=== PATIENT | female | born 1945 | race Caucasian/White ===

== ENCOUNTER 2024-04-17 14:38 | Inpatient (IN) | payer MEDICARE, OTHER ==
[~2024-04-17] VITALS: Ht 165.1 cm; Wt 72.6 kg
--- NOTE | 2024-04-17 15:45 | ED.PDOC ---
General HPI Comments A 78 YEAR OLD FEMALE PRESENTS TO THE ED ACCOMPANIED BY FRIEND PRESENTS TO THE ED WITH CHIEF COMPLAINT OF LOWER BACK PAIN. PATIENT REPORTS THAT SHE HAD STARTED TO EXPERIENCE BILATERAL LOWER BACK PAIN SINCE EARLIER TODAY ALONG WITH ASSOCIATED SYMPTOMS OF DYSURIA. PATIENT'S FRIEND RELAYS THE PATIENT HAS NOT BEEN BEHAVING NORMAL SINCE EARLIER TODAY SHE IS NOT ANSWERING QUESTIONS VERY OFTEN. PATIENT'S FRIEND STATES THAT THE PATIENT STARTED TO EXPERIENCE HER LOWER BACK PAIN AFTER ALMOST FALLING AND BENDING HER BACK FORWARD. PT HAS HX OF HYPOTHYROIDISM AND SHE DID NOT TAKE HER MEDICATION FOR MONTHS. PATIENT AND PATIENT'S FRIEND DENIES SADDLE ANESTHESIA, URINARY INCONTINENCE, BOWEL INCONTINENCE, VISION CHANGES, SLURRED SPEECH, ONE-SIDED WEAKNESS, FACIAL DROOP, ABDOMINAL PAIN, CHEST PAIN, FALL, INJURY, DIZZINESS, SOB, FEVER, CHILLS, HEMATURIA, NAUSEA, THORACIC BACK PAIN, VOMITING NO OTHER SYMPTOMS REPORTED AT THIS TIME OF CARE. Chief Complaint: Back Pain Time Seen by MD: 15:41 Primary Care Provider: unknown Reviewed notes: Nurses Notes, Medications Allergies: Coded Allergies: NO KNOWN ALLERGIES (Unverified , 04/17/24) Information Source: Patient, Friend, Emergency Med Personnel Mode of Arrival: EMS Severity: Moderate Timing: Hours Duration: Since onset Prehospital treatment: None Onset: Spontaneous Symptoms: Dysuria History of: None Location: Other (LOW BACK ) Modifying factors: None associated signs and symptoms: Back Pain, Dysuria, Other (WEAKNESS ) Past Medical History PAST MEDICAL HISTORY: Thyroid Surgical History: Denies all surgeries BREEDING MANAGER History: No Pertinent BREEDING MANAGER History Family History Family History: Reviewed,noncontributory to illness Social History Smoker: Non-Smoker Alcohol: Denies ETOH Use Drugs: Denies Drug Use Lives In: Assisted Care Constitutional: reports: fatigue, weakness; denies: chills, diaphoresis, fever, malaise, sweats EENTM: denies: blurred vision, double vision, ear bleeding, ear discharge, ear drainage, ear pain, ear ringing, eye pain, eye redness, hearing loss, mouth pain, mouth swelling, nasal discharge, nose bleeding, nose congestion, nose pain, photophobia, tearing, throat pain, throat swelling, voice changes, others Respiratory: denies: cough, hemoptysis, orthopnea, SOB at rest, shortness of breath, SOB with excertion, stridor, wheezing, others Cardiovascular: denies: chest pain, dizzy spells, diaphoresis, Dyspnea on exertion, edema, irregular heart beat, left arm pain, lightheadedness, palpitations, PND, syncope, others Gastrointestinal: denies: abdomen distended, abdominal pain, blood streaked bowels, constipated, diarrhea, dysphagia, difficulty swallowing, hematemesis, melena, nausea, poor appetite, poor fluid intake, rectal bleeding, rectal pain, vomiting, others Genitourinary: reports: dysuria; denies: abnormal vagina bleeding, burning, dyspareunia, frequency, hematuria, incontinence, pain, , vagina discharge, urgency, others Neurological: denies: dizziness, fainting, headache, left sided numbness, left sided weakness, numbness, paresthesia, pre-existing deficit, right sided numbness, right sided weakness, seizure, speech problems, tingling, tremors, weakness, others Musculoskeletal: reports: back pain, muscle pain; denies: gout, joint pain, joint swelling, muscle stiffness, neck pain, others Integumetry: denies: bruises, change in color, change in hair/nails, dryness, laceration, lesions, lumps, rash, wounds, others Allergic/Immunocompromised: denies: Difficulty Healing, Frequent Infections, Hives, Itching, others Hematologic/Lymphatic: denies: anemia, blood clots, easy bleeding, easy bruising, swollen glands, others Endocrine: denies: excessive hunger, excessive sweating, excessive thirst, excessive urination, flushing, intolerance to cold, intolerance to heat, unexplained weight gain, unexplained weight loss, others Psychiatric: denies: anxiety, bipolar disorder, depression, hopeless, panic disorder, schizophrenia, sleepless, suicidal, others All Other Systems: Reviewed and Negative Physical Exam General Appearance: Mild Distress, Normal, Other (PALE ) HEENT: Normal ENT Inspection, PERRL/EOMI Neck: Full Range of Motion, Non-Tender, Normal, Normal Inspection Respiratory: Chest Non-Tender, Lungs Clear, No Accessory Muscle Use, No Respiratory Distress, Normal Breath Sounds Cardiovascular: No Edema, No JVD, No Murmur, No Gallop, Normal Peripheral Pulses, Regular Rate/Rhythm Breast Exam: Deferred Gastrointestinal: No Organomegaly, Non Tender, No Pulsatile Mass, Normal Bowel Sounds, Soft Genitalia: Deferred Pelvic: Deferred Rectal: Deferred Extremities: No calf tenderness, Normal capillary refill, Normal inspection, Normal range of motion, Non-tender, No pedal edema Musculoskeletal : Location: Bilateral Extremity Location: Back Apperance: Tenderness (LOWER BACK, NO BONY TENDERNESS, SWELLING AND DEFORMITY. TENDERNESS PALPATED OVER L2 THROUGH L5 BILATERAL PARASPINAL MUSCLES. STRAIGHT LEG NEG BILATERAL. POSITIVE PEDAL PULSES) Neurologic: Alert, application integration engineer II-XII nml as Tested, No Motor Deficits, Normal Affect, Normal Mood, No Sensory Deficits Cerebellar Function: Normal Reflexes: Normal Skin: Dry, Normal Color, Warm Peripheral Pulses: 2+ carotid (R), 2+ carotid (L), 2+ femoral (R), 2+ femoral (L), 2+ dorsalis pedis (R), 2+ dorsalis pedis (L) Lymphatic: No Adenopathy Was a procedure done? Was a procedure done?: No Sedation Sedation?: Yes Informed consent obtained: No Sedation start time: 00:00 (Emergent condition) Sedation end time: 00:00 (Ongoing. Emergent condition.) Sedation total time: 1 HOUR Sedation provider statement: This is not my patient. This care of this patient was never signed out to me. I was called for the 1st code of this patient while in the ED who is pulseless/bradycardic and unresponsive and CPR has already been initiated. Prior to any procedure performed, I evaluated the patient's pupils. Nonreactive to light. Pupils are fixed and dilated. Procedures performed 1. GlideScope assisted endotracheal intubation. Successful intubation performed from 1st attempt. Complications none. Please see nursing notes for ET tube size and placement. Vocal cords were visualized. Good auscultation bilaterally. Post intubation x-rays obtained. Patient was preoxygenated by bag-valve masking. Etomidate was used and succinylcholine as well. Patient received an OG tube and a Martinez catheter. 2. Central line placement. First attempt at the right femoral region under ultrasound guidance was not successful due to patient's vascular anatomy. Multiple attempts were made. Patient developed a small controlled superficial hematoma at the site of the insertion of the needle. The site was aborted and I changed it to the left femoral region. Appreciated better anatomy. Left femoral central line placement under ultrasound guidance was successful from 1st attempt. However the three ports were noted to flush very easily but harder to aspirate blood from. Two of the three ports were successful in aspirating blood. The brown port was not aspirating blood. The nurse was notified to be aware. Patient later in the ED course coded again and I was called to assist with the code. Please see the code sheet for medications given. First resuscitation efforts in the 1st code patient obtained ROSC. She was placed on a dopamine drip. Pads were in place as well. Second code: Please refer to the code sheets. Time of 2338 on April 17, 2024 Dr. Robby Zapata. Central Line Recorder of insertion practice: Warehouse Receiving Supervisor Indication: Hypotension, Other (Cardiac arrest) Room prepared for procedure: Yes Warehouse Receiving Supervisor performed hand hygien: Yes Maximal sterile barrier precau: Sterile gown, Sterlie gloves, Large sterlie drape Skin Preparation: Chlorhexidine gluconate Insertion site: Right, Left, Femoral Number of lumens: 3 Informed consent obtained: No Risks/benefits/alt described: No UTO Consent Emergent condition no family available at bedside. Differential Diagnosis Kidney stone (Female): Musculoskeletal pain, Strain, Urolithiasis, Other (DDD OF LOW BACK ) Urinary Problem (Female): UTI, Other (WEAKNESS ) X-Ray, Labs, Meds, VS Vital Signs Date Time Temp Pulse Resp B/P (MAP) Pulse Ox O2 Delivery O2 Flow Rate FiO2 04/17/24 21:49 116 04/17/24 21:45 92.7 119 9 145/105 (118) 92.7 04/17/24 21:42 16 65 04/17/24 21:30 92.7 36 15 116/26 (56) 92.7 04/17/24 21:30 116/29 04/17/24 21:27 35 04/17/24 21:18 15 65 04/17/24 21:18 92.7 56 17 146/125 (132) 92.7 04/17/24 21:08 92.7 77 10 126/97 (107) 92.7 04/17/24 20:30 93.0 9 136/101 (113) 93.0 04/17/24 20:15 93.2 60 20 115/84 (94) 100 93.2 04/17/24 19:55 97.2 38 118/76 (90) 97.2 04/17/24 19:45 13 45/24 (31) 04/17/24 18:47 73 15 53/31 (38) 92 04/17/24 15:53 98.1 80 15 98/61 (73) 100 98.1 04/17/24 15:53 80 15 100 Room Air 04/17/24 15:03 98.1 60 16 98/61 (73) 10 04/17/24 14:45 59/33 (42) Lab Test 04/17/24 21:11 04/17/24 20:30 04/17/24 19:05 04/17/24 19:03 Range/Units POC Glucose 275 H 325 H 140 H 70-106 mg/dl Blood Gas Specimen Type Arterial Blood Gas Sample Site Right radial Blood Gas Patient Temperature 37.0 Arterial Blood Date Drawn [id number] Arterial Blood pH 7.117 *L 7.350-7.450 Arterial Blood Partial Pressure CO2 24.2 L 32.0-45.0 mmHg Arterial Blood Partial Pressure O2 148.3 H 83.0-108.0 mmHg Arterial Blood HCO3 7.6 L 21.0-28.0 mmol/L Arterial Blood Oxygen Saturation 97.9 94.0-98.0 % Arterial Blood Base Excess -20.1 L -2.0-3.0 mmol/L Arterial Blood Oxyhemoglobin 96.6 94.0-98.0 % Arterial Blood Carboxyhemoglobin 0.9 0.5-1.5 % Arterial Blood Methemoglobin 0.4 0.0-1.5 % Cristofer Test N/a Blood Gas Total Hemoglobin 9.70 L 12.0-16.0 g/dL Blood Gas Liter Flow 8.00 Blood Gas Modality Nasal cannula FiO2 % 52.0 Blood Gas Critical Value Read Back yes Blood Gas Notified Whom Dr. zapata, yossi lao Blood Gas Notified Time [id number] Blood Gas Notified By Test 04/17/24 17:51 04/17/24 15:50 Range/Units White Blood Count 14.4 H 4.4-10.8 10^3/uL Red Blood Count 3.41 L 4.0-5.20 10^6/uL Hemoglobin 11.8 L 12.2-16.2 g/dL Hematocrit 35.0 L 36.0-46.0 % Mean Corpuscular Volume 102.5 H 80.0-100.0 fL Mean Corpuscular Hemoglobin 34.5 H 28.0-32.0 pg Mean Corpuscular Hemoglobin Concent 33.6 32.0-36.0 g/dL Red Cell Distribution Width 16.1 H 11.8-14.3 % Platelet Count 130 L 140-450 10^3/uL Mean Platelet Volume 8.3 6.9-10.8 fL Neutrophils (%) (Auto) 88.3 H 37.0-80.0 % Lymphocytes (%) (Auto) 7.7 L 10.0-50.0 % Monocytes (%) (Auto) 3.6 0.0-12.0 % Eosinophils (%) (Auto) 0.1 0.0-7.0 % Basophils (%) (Auto) 0.3 0.0-2.0 % Neutrophils # (Auto) 12.7 H 1.6-8.6 10 ^3/uL Lymphocytes # (Auto) 1.1 0.4-5.4 10 ^3/uL Monocytes # (Auto) 0.5 0-1.3 10 ^3/uL Eosinophils # (Auto) 0 0-0.8 10 ^3/uL Basophils # (Auto) 0 0-0.2 10 ^3/uL Nucleated Red Blood Cells 0.0 % Prothrombin Time 12.1 H 9.3-11.8 sec Prothrombin Time INR 1.16 H 0.9-1.15 Sodium Level 137 136-145 mmol/L Potassium Level 3.4 L 3.5-5.1 mmol/L Chloride Level 106 98-107 mmol/L Carbon Dioxide Level 18 L 20-31 mmol/L Anion Gap 13 5-15 Blood Urea Nitrogen 18 9-23 mg/dL Creatinine 1.61 H 0.550-1.02 mg/dL Glomerular Filtration Rate Calc 33 >90 mL/min BUN/Creatinine Ratio 11.2 10.0-20.0 Serum Glucose 261 H 74-106 mg/dL Calcium Level 9.1 8.7-10.4 mg/dL Troponin I High Sensitivity 6 </=34 ng/L Thyroid Stimulating Hormone (TSH) 142.07 H 0.55-4.78 uIU/mL Urine Color Yellow Yellow Urine Clarity Turbid H Clear Urine pH 6.0 5.0-9.0 Urine Specific [place] 1.026 1.001-1.035 Urine Protein 2+ H Negative Urine Ketones Trace Negative Urine Blood Negative Negative /uL Urine Nitrite Negative Negative Urine Bilirubin Negative Negative Urine Urobilinogen 2 H Negative mg/dL Urine Leukocyte Esterase Negative Negative /uL Urine RBC 3 0 - 4 /hpf Urine Microscopic WBC 3 0-5 /HPF Urine Squamous Epithelial Cells Few <5 /hpf Urine Bacteria Few H None Seen /hpf Urine Mucus Few None Seen Urine Glucose Normal Normal mg/dL Urine Opiates Screen Neg NEGATIVE Urine Fentanyl Screen Neg NEGATIVE Urine Barbiturates Screen Neg NEGATIVE Urine Phencyclidine Screen Neg NEGATIVE Urine Amphetamines Screen Neg NEGATIVE Urine Benzodiazepines Screen Neg NEGATIVE Urine Cocaine Screen Neg NEGATIVE Urine Cannabinoids Screen Neg NEGATIVE Current Medications Medications (Trade) Dose Ordered Sig/Ruperto Route Start Time Stop Time Status Last Admin Acetaminophen/ Hydrocodone Bitart ([place] 5/325MG Tab) 1 tab ONCE ONCE PO 04/17/24 16:45 04/17/24 16:56 DC 04/17/24 16:43 Sodium Chloride 1,000 ml @ 1,000 mls/hr Q1H ONCE IV 04/17/24 17:00 04/17/24 17:59 DC 04/17/24 17:20 Sodium Chloride 1,000 ml @ 1,000 mls/hr Q1H ONCE IV 04/17/24 19:00 04/17/24 19:59 DC 04/17/24 18:56 Atropine Sulfate (Atropine Sulfate) 1 mg ONCE ONCE IV 04/17/24 20:15 04/17/24 21:34 DC 04/17/24 20:15 Dopamine HCl/ Dextrose 250 ml @ 13.613 mls/ hr [id number] IV 04/17/24 21:30 04/17/24 23:51 DC 04/17/24 21:30 Sodium Chloride 1,000 ml @ 60 mls/hr [id number] IV 04/17/24 21:15 04/17/24 23:51 DC 04/17/24 21:15 Etomidate 40 mg ONCE ONCE IV 04/17/24 20:15 04/17/24 22:26 DC 04/17/24 20:15 L-SPINE XR: FINDINGS: The lumbar vertebral alignment is normal. Facet arthropathy at L5-S1 causing moderate neural foraminal canal stenosis. No acute fracture, vertebral compression deformity or aggressive osseous lesions. The paravertebral soft tissues are grossly unremarkable. IMPRESSION: No acute fracture. Facet arthropathy at L5-S1 causing moderate neural foraminal canal stenosis. PATIENT: TEOFILO KINGT: [id number]: [id number] : 1945 LOC: ER ROOM / BED: / AGE / SEX: 78 / F ADM STATUS: REG ER SERVICE 51 ORDERING PHYSICIAN: LAUREN DUNCAN PROCEDURE(s): HWOCT - HEAD WITHOUT CONTRAST REASON: WEAKNESS ORDER NUMBER(s): [id number], ACCESSION NUMBER(s): [id number] CT HEAD WITHOUT CONTRAST INDICATION: WEAKNESS EXAM DATE: 04/17/2024 05:08 PM COMPARISON: None RADIATION DOSE: CTDIvol: 51.05 mGy, DLP: 1006.31 mGy*cm PROCEDURE: CT scans of the head were obtained from the vertex to the skull base. Sagittal and coronal reconstructions were provided. All CT scans at this medical facility are performed using dose modulation techniques as appropriate to a performed exam including the following: Automated exposure control was utilized; adjustment of the MA and/or KV according to patient size; and use of iterative reconstruction technique. FINDINGS: There is minimal cortical atrophy. There is evidence for ischemic changes in the anterior and posterior watershed zones. There are no midline shifts or focal mass effect or evidence for intracranial increased pressure or intracranial hemorrhage or contusion. The hippocampal structures symmetric 4th ventricle and aqueduct of Sylvius are unremarkable. Pituitary is normal. Mastoid air cells and paranasal sinuses and calvarium are intact. IMPRESSION: 1. Minimal cortical atrophy. ATED BY: WALE WOMACK MD DICTATED DATE/TIME: 04/17/241734 SIGNED BY: WALE WOMACK MD SIGNED DATE/TIME: 04/17/241734 CHEST XR:FINDINGS: LUNGS AND PLEURAL SPACES: Unremarkable. No consolidation. No pneumothorax. HEART: Unremarkable. No cardiomegaly. MEDIASTINUM: Unremarkable. Normal mediastinal contour. BONES/JOINTS: Unremarkable. No acute fracture. OTHER FINDINGS: . None. . . .. IMPRESSION: No acute cardiopulmonary process. X-Ray, Labs, Meds, VS Comment EXTERNAL MEDICAL RECORDS REVIEWED: [NONE] INDEPENDENT HISTORIANS: PATIENT'S FRIEND SOCIAL DETERMINANTS OF HEALTH: [NONE] IMAGING REVIEWED AND INTERPRETED RESULTS: L-SPINE XR: DDD AND SPINAL STENOSIS 1800: PATIENT CARE SIGNED OUT TO NAVNEET ANTONY, DUE TO SHIFT CHANGE AND PENDING LAB REPORTS. CT SCAN WAS ORDERED, BUT IS PENDING REPORT. PATIENT IS STABLE AND COMFORTABLE AT THIS TIME. RENETTA ANTONY HAS SAID HE WILL CONTINUE CARE FOR PATIENT. PATIENT TRANSFERRED TO HIGHER ACUITY SIDE BED 18. PATIENT BECAME BRADYCARDIC AND HYPOTENSIVE WITH CONFUSION FASTTRACK. PATIENT WAS GIVEN 1 AMP OF EPI WITH GOOD SUCCESS. ABG ORDERED, 2 AMPS OF BICARB ORDERED. PATIENT CURRENTLY ALERT AND ORIENTED, BLOOD PRESSURE STABLE, HEART RATE STABLE, CONDITION SERIOUS, NOT STABLE FOR TRANSFER, CURRENTLY ON NUT ROASTER HELPER ADMISSIONS ORDERS IN FOR ICU. PATIENT CONSULT WITH PATIENT'S CONDITION AND PLAN OF CARE. PEER-PEER REPORT GIVEN WITH [place] PHYSICIAN DR. [place] AUTHORIZATION RECEIVED FOR ADMISSION # [id number]. PATIENT ADMITTED BY HOSPITALIST FOR ICU DR ZAPATA AT BEDSIDE PATIENT CARE PATIENT IN BED 18 PATIENT AGAIN BECAME BRADYCARDIC, HYPOTENSIVE AND UNRESPONSIVE REQUIRING AIRWAY MANAGEMENT, CENTRAL LINE ACCESS AND PRESSORS FOR HYPOTENSION. IMAGING ORDERED: L-SPINE XR, CHEST XR, HEAD CT, CHEST CT, ABDOMEN AND PELVIS CT TREATMENTS ORDERED: SEPSIS PROTOCOL INITIATED PROCEDURES PERFORMED: CENTRAL LINE, INTUBATION DR ZAPATA AT BEDSIDE BEDSIDE RUNNING CODE First resuscitation efforts in the 1st code patient obtained ROSC. She was placed on a dopamine drip. Pads were in place as well. DR ZAPATA AT BEDSIDE BEDSIDE RUNNING CODE Patient later in the ED course coded again. Please see the code sheet for medications given. DR ZAPATA AT BEDSIDE BEDSIDE RUNNING CODE Second code: Please refer to the code sheets. Time of 2338 on April 17, 2024 Images Reviewed?: Images reviewed and evaluated by me Time of 1ST Reevaluation: 16:21 Reevaluation 1ST: Unchanged Time of 2ND Reevaluation: 18:00 Reevaluation 2ND: Unchanged Patient Education/Counseling: Diagnosis, Treatment Family Education/Counseling: Diagnosis, Treatment Assigned to DrAlbino SIGNED OUT TO NAVNEET ANTONY NP. PATIENT PENDING LAB REPORT. Comments 1800: PATIENT IS STABLE AT THIS TIME. PATIENT'S IV IS RUNNING AND PATIENT IS COMFORTABLE AND LAYING DOWN AT THIS TIME. PATIENT'S CARE SIGNED OUT TO NAVNEET ANTONY NP DUE TO SHIFT CHANGE AND PENDING LAB REPORTS. Change of Shift?: Yes Departure 1 Departure Time of Disposition: 18:00 Impression: Primary Impression: Generalized weakness Additional Impressions: Spinal stenosis Qualified Codes: M48.07 - Spinal stenosis, lumbosacral region Hypotension Qualified Codes: I95.9 - Hypotension, unspecified Hypothyroidism Qualified Codes: E03.9 - Hypothyroidism, unspecified Bradycardia Hypothermia Qualified Codes: T68.XXXA - Hypothermia, initial encounter Sepsis Disposition: ADMITTED INPATIENT Condition: Serious Critical Care Note Critical Care Time?: Yes (>90min-critical care time only) Stability Stability form required: Yes Unstable for transfer: Requires medication, ED Physician Assesment, Possible rapid decline, Intensive VS monitoring Heart Score Heart Score: Heart Score Response (Comments) Value History N/A 0 EKG N/A 0 Age N/A 0 Risk Factors N/A 0 Troponin N/A 0 Total 0 I personally scribed for DAKOTA,YINXIA PA ([email or web address]) on 04/17/24 at 15:45. Electronically submitted by Kike Hirsch ([email or web address]). I personally scribed for DAKOTA,YINXIA PA ([email or web address]) on 04/17/24 at 16:01. Electronically submitted by Kike Hirsch ([email or web address]). I personally scribed for DAKOTA,YINXIA PA ([email or web address]) on 04/17/24 at 16:17. Electronically submitted by Kike Hirsch ([email or web address]). I personally scribed for DAKOTA,YINXIA PA ([email or web address]) on 04/17/24 at 16:55. Electronically submitted by Kike Hirsch ([email or web address]). I personally scribed for DAKOTA,YINXIA PA ([email or web address]) on 04/17/24 at 17:41. Electronically submitted by Kike Hirsch ([email or web address]). I personally scribed for DAKOTA,YINXIA PA ([email or web address]) on 04/17/24 at 17:47. Electronically submitted by Kike Hirsch ([employer]). DAKOTA,YINXIA PA Apr 17, 2024 15:45 NAVNEET ANTONYP Apr 17, 2024 19:43 ROBBY ZAPATA DO Apr 18, 2024 03:34
--- NOTE | 2024-04-17 15:46 | DVH ---
INDICATION: LOW BACK PAIN, NO INJURY COMPARISON: None TECHNIQUE: 3 views of the lumbar spine were obtained. FINDINGS: The lumbar vertebral alignment is normal. Facet arthropathy at L5-S1 causing moderate neural foraminal canal stenosis. No acute fracture, vertebral compression deformity or aggressive osseous lesions. The paravertebral soft tissues are grossly unremarkable. IMPRESSION: No acute fracture. Facet arthropathy at L5-S1 causing moderate neural foraminal canal stenosis.
[2024-04-17 16:41] LABS: Urine Bacteria FEW /hpf (None Seen); Urine Blood Negative /uL (Negative); Urine Clarity Turbid (Clear); Urine Color Yellow (Yellow); Urine Mucus FEW (None Seen); Urine Protein, UAD 2+ (Negative); Urine Specific Gravity 1.026 (1.001-1.035); Urine Squamous Epithelial Cell FEW /hpf (<5); Urine Urobilinogen 2 mg/dL (Negative); Urine WBC 3 /HPF (0-5)
[2024-04-17] MEDS: HYDROcodone-ACET 5/325MG TAB PO ONE (16:43)
[2024-04-17] MEDS: SODIUM CHLORIDE 0.9% 1,000 ML IV ONE ×2 (17:20→18:56)
--- NOTE | 2024-04-17 17:20 | DVH ---
EXAM: XR Chest, 1 View CLINICAL INDICATION: WEAKNESS TECHNIQUE: Frontal view of the chest. COMPARISON: None FINDINGS: LUNGS AND PLEURAL SPACES: Unremarkable. No consolidation. No pneumothorax. HEART: Unremarkable. No cardiomegaly. MEDIASTINUM: Unremarkable. Normal mediastinal contour. BONES/JOINTS: Unremarkable. No acute fracture. OTHER FINDINGS: . None. . . .. IMPRESSION: No acute cardiopulmonary process.
--- NOTE | 2024-04-17 17:37 | DVH ---
CT HEAD WITHOUT CONTRAST INDICATION: WEAKNESS EXAM DATE: 04/17/2024 05:08 PM COMPARISON: None RADIATION DOSE: CTDIvol: 51.05 mGy, DLP: 1006.31 mGy*cm PROCEDURE: CT scans of the head were obtained from the vertex to the skull base. Sagittal and coronal reconstructions were provided. All CT scans at this medical facility are performed using dose modulation techniques as appropriate t o a performed exam including the following: Automated exposure control was utilized; adjustment of th e MA and/or KV according to patient size; and use of iterative reconstruction technique. FINDINGS: There is minimal cortical atrophy. There is evidence for ischemic changes in the anterior and posteri or watershed zones. There are no midline shifts or focal mass effect or evidence for intracranial inc reased pressure or intracranial hemorrhage or contusion. The hippocampal structures symmetric 4th ventricle and aqueduct of Sylvius are unremarkable. Pituitar y is normal. Mastoid air cells and paranasal sinuses and calvarium are intact. IMPRESSION: 1. Minimal cortical atrophy.
[2024-04-17 17:46] LABS: Amphetamine Screen, Urine Neg (NEGATIVE); Barbiturate Scree,Urine Neg (NEGATIVE); Benzodiazephine Screen, Urine Neg (NEGATIVE); Cannabinoid Screen, Urine Neg (NEGATIVE); Cocaine Screen, Urine Neg (NEGATIVE); Opiate Scree,Urine Neg (NEGATIVE); Phencyclidine Screen, Urine Neg (NEGATIVE)
[2024-04-17 18:34] LABS: Basophils # (auto) 0 10 ^3/uL (0-0.2); Basophils % (auto) 0.3 % (0.0-2.0); Eosinophils # (auto) 0 10 ^3/uL (0-0.8); Eosinophils % (auto) 0.1 % (0.0-7.0); Hemoglobin 11.8 g/dL (12.2-16.2); Monocytes # (auto) 0.5 10 ^3/uL (0-1.3); Monocytes % (auto) 3.6 % (0.0-12.0); White Blood Cell 14.4 10^3/uL (4.4-10.8)
[2024-04-17 18:35] LABS: Lymphocytes # (auto) 1.1 10 ^3/uL (0.4-5.4); Lymphocytes % (auto) 7.7 % (10.0-50.0); Mean Corpuscular Hemoglobin 34.5 pg (28.0-32.0); Mean Corpuscular Hgb Conc. 33.6 g/dL (32.0-36.0); Mean Corpuscular Volume 102.5 fL (80.0-100.0); Neutrophils # (auto) 12.7 10 ^3/uL (1.6-8.6); Neutrophils % (auto) 88.3 % (37.0-80.0); Platelet Count (auto) 130 10^3/uL (140-450); Red Blood Cells 3.41 10^6/uL (4.0-5.20); Red Cell Distribution Width 16.1 % (11.8-14.3)
[2024-04-17 18:42] LABS: Chloride 106 mmol/L (98-107); Sodium 137 mmol/L (136-145)
[2024-04-17 18:43] LABS: Anion Gap 13 (5-15); Calcium 9.1 mg/dL (8.7-10.4)
[2024-04-17 18:48] LABS: BUN/Creatinine Ratio 11.2 (10.0-20.0); Blood Urea Nitrogen 18 mg/dL (9-23); Glucose 261 mg/dL (74-106)
[2024-04-17 18:49] LABS: INR 1.16 (0.9-1.15); Prothrombin Time 12.1 sec (9.3-11.8)
[2024-04-17 18:50] LABS: Carbon Dioxide 18 mmol/L (20-31); Potassium 3.4 mmol/L (3.5-5.1)
[2024-04-17] MEDS: ATROPINE SULF 1 MG/10ml SYR ONE (19:01)
[2024-04-17] MEDS: GLUCAGON EMERG KIT 1mg/1ml ONE (19:04)
[2024-04-17 19:45] LABS: Base Excess -20.1 mmol/L (-2.0-3.0)
[2024-04-17 20:15] VITALS: O2SAT 100
[2024-04-17] MEDS: ETOMIDATE (2MG/ML) 20ML VIAL IV ONE ×2 (20:15→21:12)
[2024-04-17] MEDS: ATROPINE SULF 1 MG/10ml SYR IV ONE (20:15)
[2024-04-17] MEDS ORDERED: VANCOMYCIN 1GM/250ML KIT 250 ML IV ONE (20:30)
[2024-04-17] MEDS ORDERED: PIPERACILLIN-TAZOB 2.25GM 50 ML IV ONE (20:30)
[2024-04-17] MEDS: SUCCINYLCHOLINE CHLORIDE 20 MG/ML 10ML VIAL IV ONE (21:13)
[2024-04-17] MEDS ORDERED: HYDROcodone-ACET 5/325MG TAB PO PRN (21:15)
[2024-04-17] MEDS ORDERED: DOCUSATE SOD 100 MG CAP PO PRN (21:15)
[2024-04-17] MEDS ORDERED: ONDANSETRON HCL 4 MG/2 ML VIAL IV PRN (21:15)
[2024-04-17] MEDS: SODIUM CHLORIDE 0.9% 1,000 ML IV SCH (21:15)
[2024-04-17] MEDS ORDERED: VANCOMYCIN PER PHARMACY 0 MG IV SCH (21:15)
[2024-04-17] MEDS: POTASSIUM CHL 20 Meq TABLET PO ONE (21:15)
[2024-04-17] MEDS ORDERED: ACETAMINOPHEN 325 MG TAB PO PRN (21:15)
[2024-04-17] MEDS ORDERED: DEXTROSE (50%) 50ML SYRG IV PRN (21:15)
[2024-04-17] MEDS: DOPamine 1600MCG/ML D5W 250 ML IV ONE (21:21)
[2024-04-17] MEDS: DOPamine 1600MCG/ML D5W 250 ML IV SCH (21:30)
[2024-04-17] MEDS: HYDROCORTISONE SOD SUCC 100 MG/2ML INJ VIAL ONE (21:42)
[2024-04-17] MEDS: HYDROCORTISONE SOD SUCC 100 MG/2ML INJ VIAL IV ONE (21:42)
[2024-04-17 21:45] VITALS: RESP 9; TEMP 92.7
[2024-04-17 21:49] VITALS: PULSE 116
[2024-04-17] MEDS ORDERED: PIPERACILLIN-TAZOB 3.375GM 100 ML IV SCH (22:00)
[2024-04-17] MEDS: ATORVASTATIN 20 MG TAB PO SCH (22:00)
--- NOTE | 2024-04-17 22:02 | DVH ---
CHEST RADIOGRAPH Indication: POST INTUBATION Technique: Single frontal view of the chest was obtained Comparison: XY CHEST XRAY 1 VIEW on DOS: 04/17/24 FINDINGS: Single frontal view of the chest was obtained the patient has an external pacer pad projecting over t he right lower chest. There is endotracheal tube at the level of the clavicles lungs demonstrate per ipheral markings suggesting chronic lung disease there are no effusions and possibly tiny infiltrate adjacent right hemidiaphragm. IMPRESSION: 1. Endotracheal tube is in good position. Lung findings are suggestive of chronic changes and possibl e small area of infiltrate or atelectasis right lower
--- NOTE | 2024-04-17 22:43 | DVHHP2 ---
History of Present Illness Reason for Visit: Acute respiratory failure History of Present Illness The patient is a 78-year-old female with past medical history of thyroid disease, hyperlipidemia, and diabetes mellitus who presented to [facility] ED with complaint of lower back pain. Patient's friend reports she has been experiencing bilateral lower back pain associated with dysuria, and altered mental status. Patient's friend reports that this started when she almost fell due to weakness and bending her back forward, noncompliant medication regimen. Patient was seen and evaluated in the ED, laboratory data shows WBC 14.4, hemoglobin 11.8, hematocrit 35.0, platelets 130, sodium 137, potassium 3.4, BUN 18, creatinine 1.61, GFR 33, glucose 261, troponin 6, TSH 142.07, blood pressure 53/31 trending up to 134/41, heart rate 65, temperature 98.1 F, O2 saturation 92% on oxygen. Patient was started on IV antibiotic regimen vancomycin, IV dopamine, please see medication orders section in the computer. However, patient's condition progressively get worse and was subsequently intubated. On my assessment, patient remains altered, on ventilator, no diaphoresis, no diarrhea, no nausea, no vomiting, no chills. Patient was admitted for further evaluation and medical management. Past Medical History Thyroid disease, HLD, DM Past Surgical History Denies all surgeries Family History Reviewed, noncontributory to the management of this case. Past Social History The patient lives at home, denies smoking, alcohol or illicit drugs abuse. Review of Systems Constitutional: Yes: Weakness, Other (Fatigue); No: Fever, Chills, Sweats, Malaise Eyes: No: Pain, Vision change, Conjunctivae inflammation, Eyelid inflammation, Other, Redness ENT: No: Ear pain, Ear discharge, Nose pain, Nose discharge, Nose congestion, Mouth pain, Mouth swelling, Throat pain, Throat swelling, Other Respiratory: Shortness of breath, SOB with excertion, Other (SOB at rest); No: Cough, Dry, Wheezing, Hemoptysis, Pleuritic Pain, Sputum, Wheezing Cardiovascular: No: Chest Pain, Palpitations, Orthopnea, Paroxysmal Noc. Dyspnea, Edema, Lt Headedness, Other Gastrointestinal: No: Nausea, Vomiting, Abdominal Pain, Diarrhea, Constipation, Melena, Hematochezia, Other Genitourinary: Dysuria; No Frequency, No Incontinence, No Hematuria, No Retention, No Other Musculoskeletal: other (Muscle pain), back pain; No: neck pain, shoulder pain, arm pain, hand pain, leg pain, foot pain Skin: No: Rash, Lesions, Jaundice, Bruising, Other Neurological: Weakness; No: Numbness, Incoordination, Change in speech, Con fusion, Seizures, Other Allergies: Coded Allergies: NO KNOWN ALLERGIES (Unverified , 04/17/24) Medications Current Medications Medications Dose Ordered Sig/Ruperto Route Start Time Stop Time Status Last Admin Dose Admin Dopamine HCl/ Dextrose 250 ml @ 13.613 mls/ hr [id number] IV 04/17/24 21:30 04/17/24 21:30 13.613 MLS/HR Levothyroxine Sodium 100 mcg QAM@0600 PO 04/18/24 06:00 Atorvastatin Calcium 20 mg HS PO 04/17/24 22:00 Piperacillin Sod/ Tazobactam Sod 100 ml @ 25 mls/hr Q8HR IV 04/17/24 22:00 Vancomycin HCl 0 ml @ 0 mls/hr UD IV 04/17/24 21:15 UNV Diagnostic Test (Pha) 1 strip IQ4HR 04/18/24 00:00 Insulin Human Regular IQ4HR SC 04/18/24 00:00 Dextrose 50 ml UD PRN IV 04/17/24 21:15 Sodium Chloride 1,000 ml @ 60 mls/hr [id number] IV 04/17/24 21:15 04/17/24 21:15 60 MLS/HR Acetaminophen/ Hydrocodone Bitart 1 tab Q4HP PRN PO 04/17/24 21:15 Ondansetron HCl 4 mg Q4HP PRN IV 04/17/24 21:15 Docusate Sodium 100 mg BIDPRN PRN PO 04/17/24 21:15 Acetaminophen 650 mg Q6HP PRN PO 04/17/24 21:15 Exam Vital Signs Vital Signs Date Time Temp Pulse Resp B/P (MAP) Pulse Ox O2 Delivery O2 Flow Rate FiO2 04/17/24 21:42 16 65 04/17/24 21:30 116/29 04/17/24 20:30 93.0 93.0 04/17/24 20:15 60 100 04/17/24 15:53 Room Air General Appearance: Other (Fully intubated) HEENT: Atraumatic, PERRLA, EOMI, Mucous membr. moist/pink Respiratory: Other (On ventilator) Cardiovascular: Regular rate, Normal S1, Normal S2, No murmurs Abdominal: Normal bowel sounds, Soft, No tenderness, No hepatospenomegaly, No masses Extremities: No clubbing, No cyanosis, No edema, Normal pulses, No tenderness/swelling Skin: No rashes Neuro: Other (Altered level consciousness) Psych/Mental Status: Other (Altered mental status) Labs/Xrays Labs Test 04/17/24 21:11 04/17/24 19:05 04/17/24 17:51 04/17/24 15:50 Range/Units POC Glucose 275 H 70-106 mg/dl Blood Gas Specimen Type Arterial Blood Gas Sample Site Right radial Blood Gas Patient Temperature 37.0 Arterial Blood Date Drawn [id number] Arterial Blood pH 7.117 *L 7.350-7.450 Arterial Blood Partial Pressure CO2 24.2 L 32.0-45.0 mmHg Arterial Blood Partial Pressure O2 148.3 H 83.0-108.0 mmHg Arterial Blood HCO3 7.6 L 21.0-28.0 mmol/L Arterial Blood Oxygen Saturation 97.9 94.0-98.0 % Arterial Blood Base Excess -20.1 L -2.0-3.0 mmol/L Arterial Blood Oxyhemoglobin 96.6 94.0-98.0 % Arterial Blood Carboxyhemoglobin 0.9 0.5-1.5 % Arterial Blood Methemoglobin 0.4 0.0-1.5 % Cristofer Test N/a Blood Gas Total Hemoglobin 9.70 L 12.0-16.0 g/dL Blood Gas Liter Flow 8.00 Blood Gas Modality Nasal cannula FiO2 % 52.0 Blood Gas Critical Value Read Back yes Blood Gas Notified Whom yossi Turner md Blood Gas Notified Time [id number] Blood Gas Notified By White Blood Count 14.4 H 4.4-10.8 10^3/uL Red Blood Count 3.41 L 4.0-5.20 10^6/uL Hemoglobin 11.8 L 12.2-16.2 g/dL Hematocrit 35.0 L 36.0-46.0 % Mean Corpuscular Volume 102.5 H 80.0-100.0 fL Mean Corpuscular Hemoglobin 34.5 H 28.0-32.0 pg Mean Corpuscular Hemoglobin Concent 33.6 32.0-36.0 g/dL Red Cell Distribution Width 16.1 H 11.8-14.3 % Platelet Count 130 L 140-450 10^3/uL Mean Platelet Volume 8.3 6.9-10.8 fL Neutrophils (%) (Auto) 88.3 H 37.0-80.0 % Lymphocytes (%) (Auto) 7.7 L 10.0-50.0 % Monocytes (%) (Auto) 3.6 0.0-12.0 % Eosinophils (%) (Auto) 0.1 0.0-7.0 % Basophils (%) (Auto) 0.3 0.0-2.0 % Neutrophils # (Auto) 12.7 H 1.6-8.6 10 ^3/uL Lymphocytes # (Auto) 1.1 0.4-5.4 10 ^3/uL Monocytes # (Auto) 0.5 0-1.3 10 ^3/uL Eosinophils # (Auto) 0 0-0.8 10 ^3/uL Basophils # (Auto) 0 0-0.2 10 ^3/uL Nucleated Red Blood Cells 0.0 % Prothrombin Time 12.1 H 9.3-11.8 sec Prothrombin Time INR 1.16 H 0.9-1.15 Sodium Level 137 136-145 mmol/L Potassium Level 3.4 L 3.5-5.1 mmol/L Chloride Level 106 98-107 mmol/L Carbon Dioxide Level 18 L 20-31 mmol/L Anion Gap 13 5-15 Blood Urea Nitrogen 18 9-23 mg/dL Creatinine 1.61 H 0.550-1.02 mg/dL Glomerular Filtration Rate Calc 33 >90 mL/min BUN/Creatinine Ratio 11.2 10.0-20.0 Serum Glucose 261 H 74-106 mg/dL Calcium Level 9.1 8.7-10.4 mg/dL Troponin I High Sensitivity 6 </=34 ng/L Thyroid Stimulating Hormone (TSH) 142.07 H 0.55-4.78 uIU/mL Urine Color Yellow Yellow Urine Clarity Turbid H Clear Urine pH 6.0 5.0-9.0 Urine Specific [place] 1.026 1.001-1.035 Urine Protein 2+ H Negative Urine Ketones Trace Negative Urine Blood Negative Negative /uL Urine Nitrite Negative Negative Urine Bilirubin Negative Negative Urine Urobilinogen 2 H Negative mg/dL Urine Leukocyte Esterase Negative Negative /uL Urine RBC 3 0 - 4 /hpf Urine Microscopic WBC 3 0-5 /HPF Urine Squamous Epithelial Cells Few <5 /hpf Urine Bacteria Few H None Seen /hpf Urine Mucus Few None Seen Urine Glucose Normal Normal mg/dL Urine Opiates Screen Neg NEGATIVE Urine Fentanyl Screen Neg NEGATIVE Urine Barbiturates Screen Neg NEGATIVE Urine Phencyclidine Screen Neg NEGATIVE Urine Amphetamines Screen Neg NEGATIVE Urine Benzodiazepines Screen Neg NEGATIVE Urine Cocaine Screen Neg NEGATIVE Urine Cannabinoids Screen Neg NEGATIVE PATIENT: TAMI KINGACCT: [id number] UNIT: [id number] : 1945 LOC: ER ROOM / BED: / AGE / SEX: 78 / F ADM STATUS: REG ER SERVICE 51 ORDERING PHYSICIAN: LAUREN DUNCAN PROCEDURE(s): HWOCT - HEAD WITHOUT CONTRAST REASON: WEAKNESS ORDER NUMBER(s): [id number], ACCESSION NUMBER(s): [id number] CT HEAD WITHOUT CONTRAST INDICATION: WEAKNESS EXAM DATE: 04/17/2024 05:08 PM COMPARISON: None RADIATION DOSE: CTDIvol: 51.05 mGy, DLP: 1006.31 mGy*cm PROCEDURE: CT scans of the head were obtained from the vertex to the skull base. Sagittal and coronal reconstructions were provided. All CT scans at this medical facility are performed using dose modulation techniques as appropriate to a performed exam including the following: Automated exposure control was utilized; adjustment of the MA and/or KV according to pa tient size; and use of iterative reconstruction technique. FINDINGS: There is minimal cortical atrophy. There is evidence for ischemic changes in the anterior and posterior watershed zones. There are no midline shifts or focal mass effect or evidence for intracranial increased pressure or intracranial hemorrhage or contusion. The hippocampal structures symmetric 4th ventricle and aqueduct of Sylvius are unremarkable. Pituitary is normal. Mastoid air cells and paranasal sinuses and calvarium are intact. IMPRESSION: 1. Minimal cortical atrophy. ORDERING PHYSICIAN: LAUREN DUNCAN PROCEDURE(s): LUMB2 - LUMBAR SPINE 3 VIEW REASON: LOW BACK PAIN, NO INJURY ORDER NUMBER(s): [id number], ACCESSION NUMBER(s): [id number] INDICATION: LOW BACK PAIN, NO INJURY COMPARISON: None TECHNIQUE: 3 views of the lumbar spine were obtained. FINDINGS: The lumbar vertebral alignment is normal. Facet arthropathy at L5-S1 causing moderate neural foraminal canal stenosis. No acute fracture, vertebral compression deformity or aggressive osseous lesions. The paravertebral soft tissues are grossly unremarkable. IMPRESSION: No acute fracture. Facet arthropathy at L5-S1 causing moderate neural foraminal canal stenosis. ORDERING PHYSICIAN: LAUREN DUNACN PROCEDURE(s): CXR1 - CHEST XRAY 1 VIEW REASON: WEAKNESS ORDER NUMBER(s): [id number], ACCESSION NUMBER(s): [id number] EXAM: XR Chest, 1 View CLINICAL INDICATION: WEAKNESS TECHNIQUE: Frontal view of the chest. COMPARISON: None FINDINGS: LUNGS AND PLEURAL SPACES: Unremarkable. No consolidation. No pneumothorax. HEART: Unremarkable. No cardiomegaly. MEDIASTINUM: Unremarkable. Normal mediastinal contour. BONES/JOINTS: Unremarkable. No acute fracture. OTHER FINDINGS: None. IMPRESSION: No acute cardiopulmonary process. ORDERING PHYSICIAN: NAVNEET ANTONY PROCEDURE(s): CXR1 - CHEST XRAY 1 VIEW REASON: POST INTUBATION ORDER NUMBER(s): [id number], ACCESSION NUMBER(s): [id number] CHEST RADIOGRAPH Indication: POST INTUBATION Technique: Single frontal view of the chest was obtained Comparison: XY CHEST XRAY 1 VIEW on DOS: 04/17/24 FINDINGS: Single frontal view of the chest was obtained the patient has an external pacer pad projecting over the right lower chest. There is endotracheal tube at the level of the clavicles lungs demonstrate peripheral markings suggesting chronic lung disease there are no effusions and possibly tiny infiltrate adjacent right hemidiaphragm. IMPRESSION: 1. Endotracheal tube is in good position. Lung findings are suggestive of chronic changes and possible small area of infiltrate or atelectasis right lower Assessment/Plan Assessment/Plan Acute respiratory failure Generalized weakness Spinal stenosis Spinal stenosis, lumbosacral region Hypotension, unspecified Hypothyroidism Hypothyroidism, unspecified Anemia, unspecified Bradycardia Hypothermia, initial encounter Sepsis, unspecified organisms Plan 1. Admit to intensive care unit 2. Breathing treatment 3. Pain control management 4. IV antibiotic management 5. Management of fluids and electrolytes 6. Consultation for pulmonology/cardiology 7. Diagnostic test head CT 8. DVT prophylaxis on SCDs 9. Repeat labs CBC, CMP in a.m. 10. Home medication reviewed and reconciled 11. Continue with current medical management 12. Treatment plan discussed with patient/patient's friend and RN. Patient is fully intubated. Plan discussed with: Patient, Other (RN/patient's friend) My Orders Orders - REY BROWNLEE DNP Procedure Category Date Status Time Levothyroxine Tablet PHA 04/18/24 In Process (Synthroid Tablet) 06:00 Atorvastatin (Lipitor) PHA 04/17/24 In Process 22:00 Piperacillin-Tazob PHA 04/17/24 In Process 3.375gm (Zosyn 3.375g 22:00 Vancomycin Per PHA 04/17/24 Pending Pharmacy 21:15 Consistent DIET 04/18/24 Transmitted Carb(Ccho)Diabetes Breakfast * Cardiology Consult CONS 04/17/24 Transmitted 21:15 Glucose Blood PHA 04/18/24 In Process (Accu-Chek Comfort 00:00 Insulin R (Human) PHA 04/18/24 In Process (Insulin R) 00:00 Dextrose 50% Syringe PHA 04/17/24 In Process 21:15 Allergies RAMONITA 04/17/24 In Process 21:15 Code Status CODE 04/17/24 Transmitted 21:15 Sodium Chloride 0.9% PHA 04/17/24 In Process 21:15 Oxygen Per Hour RT 04/17/24 Transmitted 21:15 Hydrocodone-Acet PHA 04/17/24 In Process 5/325mg Tab ([place] 21:15 Ondansetron Hcl PHA 04/17/24 In Process (Zofran) 21:15 Docusate Sodium PHA 04/17/24 In Process Capsule (Colace 21:15 Fall Risk Precautions RAMONITA 04/17/[address] 21:15 Complete Blood Count LAB 04/18/24 Verified 04:00 Comprehensive LAB 04/18/24 Verified Metabolic Panel 04:00 Condition: Serious RAMONITA 04/17/24 In Process 21:15 Acetaminophen Tablet PHA 04/17/24 In Process (Tylenol Tablet) 21:15 Sequential RAMONITA 04/17/24 In Process Compression Device Problem List: (1) Acute respiratory failure (2) Anemia, unspecified (3) Spinal stenosis (4) Hypothyroidism (5) Bradycardia (6) Generalized weakness (7) Spinal stenosis, lumbosacral region (8) Sepsis, unspecified organism (9) Hypothyroidism, unspecified (10) Hypothermia, initial encounter (11) Hypotension, unspecified Date of Service: Apr 17, 2024 Billing Provider: REY BROWNLEE DNP Common Visit Codes: [id number] INP/OBS CARE (HIGH) REY BROWNLEE DNP Apr 17, 2024 22:43
[2024-04-17] MEDS ORDERED: NITROGLYCERIN 0.4 MG SL TAB SL PRN (22:45)
[2024-04-17] MEDS ORDERED: MORPHINE SULFATE INJ 2 MG/ml SYRG IV PRN (22:45)
--- NOTE | 2024-04-17 23:04 | RESUS ---
BALAJI CELAYA ASSESSSMENT History of Events History of Events: Per primary RN, pt went unresponsive while in ER and then pulseless. BALAJI CELAYA called. Initial Information Date: Apr 17, 2024 Time: : Location of Arrest: ER Arrest Witnessed: Yes CPR started initial time: 21:28 CPR started by whom: Hospital Staff Pre-Hospital Care: Pre-Code Care (inpatient) Type of arrest: Cardiac, Respiratory, Adult, Witnessed Spontaneous Respirations: No Pulse Present: No Monitoring: ECG, Pulse Oximetry, Telemetry Crash Cart Opened and Supplies: Yes Airway Ventilation Breathing at Onset: Assisted Oxygen Delivery Method: Mechanical Ventilator Time of first Assisted Ventila: : Artificial Ventilation: Bag/Endo tube Intubation Size: 7.5 cuffed Intubated by: Dr Castillo Intubated orally: Yes Intubated Nasaly: No Tube secured at: 23 (cm @ lip) Comments: Pt was intubated prior to code Circulation Circulation #1: Time: 21:28 Pulse Rate (adult): 0 Blood Pressure Systolic: 0 Blood Pressure Diastolic: 0 Temperature (Fahrenheit): 92.7 (F; rectal) Circulation Comment: PEA Circulation #2: Time: 21:30 Pulse Rate (adult): 0 Blood Pressure Systolic: 0 Blood Pressure Diastolic: 0 Circulation Comment: PEA Circulation #3: Time: 21:33 Pulse Rate (adult): 0 Blood Pressure Systolic: 0 Blood Pressure Diastolic: 0 Circulation Comment: PEA Circulation #4: Time: 21:35 Pulse Rate (adult): 0 Blood Pressure Systolic: 0 Blood Pressure Diastolic: 0 Circulation Comment: Asystole; verified via ultrasound by Dr Castillo Circulation #5: Time: 21:38 Pulse Rate (adult): 0 Blood Pressure Systolic: 0 Blood Pressure Diastolic: 0 Circulation Comment: VFib Circulation #6: Time: 21:41 Pulse Rate (adult): 116 Blood Pressure Systolic: 145 Blood Pressure Diastolic: 105 Temperature (Fahrenheit): 92.7 Circulation Comment: ROSC Defibrillation Defbrillation : Time Defibrillator Applied: :38 EKG Rhythm: V-Fibrillation Compressions: Manual Time Defibrillator Shocked Pt.: :38 Defib. Joules: 120 Pulse Present: No Procedure - IV Procedure - IV #1: IV Side: Left IV Location: Antecubital IV Catheter Type: Peripheral IV IV Placed: In Hospital IV Gauge: 20 IV Line Care: Saline Flush Comment Placed prior to code Procedure - IV #2: IV Side: Right IV Location: Antecubital IV Catheter Type: Peripheral IV IV Placed: In Hospital IV Gauge: 20 IV Line Care: Saline Flush Comment Placed prior to code Procedure - IV #3: IV Side: Right IV Location: Upper Arm Anterior IV Catheter Type: Saline Lock IV Placed: In Hospital IV Gauge: 20 IV Line Care: Saline Flush Comment Placed prior to code Medications & Response Medications and Responses #1: Medication Time: 21:29 ADULT Medications Given ADULT: Epinephrine 1 mg, Sodium Bacarbinate 50 meq Route of Administration: IV Heart Rate: 0 EKG Rhythm: PEA Blood Pressure Systolic: 0 Blood Pressure Diastolic: 0 Respiratory Rate: 0 EKG Rhythm: PEA Medications and Responses #2: Medication Time: 21:31 ADULT Medications Given ADULT: 2 Amps Na Bicarb Route of Administration: IV Heart Rate: 0 EKG Rhythm: PEA Blood Pressure Systolic: 0 Blood Pressure Diastolic: 0 Respiratory Rate: 0 EKG Rhythm: PEA Medications and Responses #3: Medication Time: 21:32 ADULT Medications Given ADULT: Epinephrine 1 mg Route of Administration: IV Heart Rate: 0 EKG Rhythm: PEA Blood Pressure Systolic: 0 Blood Pressure Diastolic: 0 Respiratory Rate: 0 EKG Rhythm: PEA Medications and Responses #4: Medication Time: 21:36 ADULT Medications Given ADULT: Epinephrine 1 mg Route of Administration: IV Heart Rate: 0 EKG Rhythm: Asystole Blood Pressure Systolic: 0 Blood Pressure Diastolic: 0 Respiratory Rate: 0 EKG Rhythm: V-Fibrillation Medications and Responses #5: Medication Time: 21:39 ADULT Medications Given ADULT: Epinephrine 1 mg Route of Administration: IV Heart Rate: 0 EKG Rhythm: PEA Blood Pressure Systolic: 0 Blood Pressure Diastolic: 0 Respiratory Rate: 0 Nurses Notes Eze Coma Scale Eye Opening: None (1) Eze Coma Scale Verbal: None (1) [place] Coma Scale Motor: None (1) [place] Total: 3 Pupil Reaction: Non Reactive Bedside Blood Glucose: 275 EKG Rhythm: Sinus Tachycardia (STach w/RBBB @ 2149) Time Code Ended Time Code Ended: 21:42 Post Arrest Status: Ventilated Outcome of code: Successful Family notified: Yes Attending called: Yes Code Team Present: Dr Jonathan ANDRES MD; Vega Elliott RN - ER process treater; Kandy Diez RN - Artificial Limb Fitter; Marina Churchill RT; Zofia Francisco RN - Primary RN; Lola Burks RN; Faraz Jernigan MANAGER PRIMARY; Emmett Burks, ERT; John Landry, ERT; Shruthi Reilly, ERT Post Resuscitation Neurologica Pupil Size: 4 ROSC Time of ROSC: 21:42 Kandy Gutierrez Apr 17, 2024 23:04
[2024-04-17 23:15] VITALS: BP 0/0
[2024-04-17] MEDS: EPINEPHrine HCL 250 ML IV SCH (23:15)
[2024-04-17] MEDS: EPINEPHrine HCL 250 ML IV ONE (23:17)
[2024-04-17] MEDS ORDERED: SODIUM BICARB 8.4% 50Meq/50ml SYR INJ IV ONE (23:38)
[2024-04-17] MEDS: EPINEPHrine HCL 1 MG/10 ML SYRG ONE (23:47)
[2024-04-18] MEDS ORDERED: ACCU-CHEK COMFORT CURVE STRIP VI SCH
[2024-04-18] MEDS ORDERED: InsuLIN REG 1unit/0.01ml Soln (100units/ml) SC SCH
--- NOTE | 2024-04-18 02:00 | RESUS ---
BALAJI CELAYA ASSESSSMENT History of Events History of Events: Per primary RN, pt heart rate went brandy and then pulses lost. BALAJI CELAYA called. Initial Information Date: Apr 17, 2024 Time: : Location of Arrest: ER Arrest Witnessed: Yes CPR started initial time: 23:25 CPR started by whom: Hospital Staff Pre-Hospital Care: Pre-Code Care (inpatient) Type of arrest: Cardiac, Respiratory, Adult, Witnessed Spontaneous Respirations: No Pulse Present: No Monitoring: ECG, Pulse Oximetry, Telemetry Crash Cart Opened and Supplies: Yes Airway Ventilation Breathing at Onset: Assisted Oxygen Delivery Method: Mechanical Ventilator Time of first Assisted Ventila: 23: Artificial Ventilation: Bag/Endo tube Comments: Pt intubated prior to code Circulation Circulation #1: Time: 23:25 Pulse Rate (adult): 0 Blood Pressure Systolic: 0 Blood Pressure Diastolic: 0 Temperature (Fahrenheit): 91.9 (F; rectal) Circulation #2: Time: 23:28 Pulse Rate (adult): 0 Blood Pressure Systolic: 0 Blood Pressure Diastolic: 0 Circulation Comment: PEA Circulation #3: Time: 23:30 Pulse Rate (adult): 0 Blood Pressure Systolic: 0 Blood Pressure Diastolic: 0 Circulation Comment: PEA Circulation #4: Time: 23:32 Pulse Rate (adult): 0 Blood Pressure Systolic: 0 Blood Pressure Diastolic: 0 Circulation Comment: Asystole Circulation #5: Time: 23:34 Pulse Rate (adult): 0 Blood Pressure Systolic: 0 Blood Pressure Diastolic: 0 Circulation Comment: Asystole Circulation #6: Time: 23:37 Pulse Rate (adult): 0 Blood Pressure Systolic: 0 Blood Pressure Diastolic: 0 Circulation Comment: Asystole Circulation #7: Time: 23:39 Pulse Rate (adult): 0 Blood Pressure Systolic: 0 Blood Pressure Diastolic: 0 Circulation Comment: Asystole; TOD Medications & Response Medications and Responses #1: Medication Time: 23:26 ADULT Medications Given ADULT: Epinephrine 1 mg Route of Administration: IV Heart Rate: 0 EKG Rhythm: Asystole Blood Pressure Systolic: 0 Blood Pressure Diastolic: 0 Respiratory Rate: 0 EKG Rhythm: PEA Medications and Responses #2: Medication Time: 23:29 ADULT Medications Given ADULT: Epinephrine 1 mg Route of Administration: IV Heart Rate: 0 EKG Rhythm: PEA Blood Pressure Systolic: 0 Blood Pressure Diastolic: 0 Respiratory Rate: 0 EKG Rhythm: Asystole Medications and Responses #3: Medication Time: 23:32 ADULT Medications Given ADULT: Epinephrine 1 mg Route of Administration: IV Heart Rate: 0 EKG Rhythm: Asystole Blood Pressure Systolic: 0 Blood Pressure Diastolic: 0 Respiratory Rate: 0 EKG Rhythm: Asystole Medications and Responses #4: Medication Time: 23:35 ADULT Medications Given ADULT: Epinephrine 1 mg Route of Administration: IV Heart Rate: 0 EKG Rhythm: Asystole Blood Pressure Systolic: 0 Blood Pressure Diastolic: 0 Respiratory Rate: 0 EKG Rhythm: Asystole Procedure - Central Venous Cat Central venous catheter site: Rt Femoral Central Venous Catheter Insert: Dr Castillo Comment: Placed prior to code Nurses Notes Eze Coma Scale Eye Opening: None (1) Eze Coma Scale Verbal: None (1) [place] Coma Scale Motor: None (1) Pupil Reaction: Non Reactive Bedside Blood Glucose: 217 Time Code Ended Time Code Ended: 23:39 Post Arrest Status: Outcome of code: Unsuccessful Patient pronounced by: Dr Castillo Time patient pronounced: 23:39 Family notified: Yes Code Team Present: Dr Castillo - DMITRY GARIBAY; Vega Elliott RN - ER Charge; Kandy Diez RN - Parimutuel Ticket Seller; Zofia Francisco RN - Primary RN; Marina Churchill, RT; Emmett Burks, ERT; Shruthi Reilly, ERT; John Landry, ERT; Christoph Churchill, ERT Kandy Gutierrez Apr 18, 2024 02:00
[2024-04-18] MEDS ORDERED: LEVOTHYROXINE SODIUM 100 MCG TAB PO SCH (06:00)
--- NOTE | 2024-04-18 06:07 | ECG ---
[facility] Test Date: 2024-04-17 Test Time: 21:27:21 Pat Name: TAMI KING Department: ER Room: [address] [place] [address] A Gender: F [employer] Consultant: FOUZIA : 1945 Requested By: LAUREN DUNCAN Order Number: [id number] Reading MD: Kurt Thompson Measurements Intervals [place] Rate: 35 P: 72 DE: 196 QRS: 40 QRSD: 99 T: 25 QT: 503 QTc: 384 Interpretive Statements Sinus bradycardia Ventricular premature complex Low voltage, extremity leads Abnormal R-wave progression, early transition Borderline ST elevation, anterior leads Electronically Signed On 04-18-2024 12:11:58 PST by Kurt Thompson Please click the below link to view image of tracing.
--- NOTE | 2024-04-18 08:24 | ECG ---
[facility] Test Date: 2024-04-17 Test Time: 21:49:41 Pat Name: TAMI KING Department: ER Room: [address] [place] [address] A Gender: F Electrician Aircraft: FOUZIA : 1945 Requested By: NAVNEET ANTONY Order Number: [id number] Reading MD: Kurt Thompson Measurements Intervals [place] Rate: 116 P: 231 IN: 136 QRS: 109 QRSD: 143 T: -30 QT: 357 QTc: 497 Interpretive Statements Incomplete analysis due to missing data in precordial lead(s) Sinus or ectopic atrial tachycardia RBBB and LPFB Missing lead(s): V2 Electronically Signed On 04-18-2024 12:12:03 PST by Kurt Thompson Please click the below link to view image of tracing.
== END 2024-04-17 23:39 | DRG 208 ==
LOC: EDBD 14:38 → ER 14:38 → OVERFLOW 22:40
PROVIDERS: ADMIT Nurse Practitioner Family; ATTEND Nurse Practitioner Family
PROC: 06HY33Z Insertion of Infusion Device into Lower Vein, Percutaneous Approach (ICD-10-PCS; principal; 2024-04-17)
PROC: 5A12012 Performance of Cardiac Output, Single, Manual (ICD-10-PCS; 2024-04-17)
PROC: 5A2204Z Restoration of Cardiac Rhythm, Single (ICD-10-PCS; 2024-04-17)
PROC: 0BH17EZ Insertion of Endotracheal Airway into Trachea, Via Natural or Artificial Opening (ICD-10-PCS; 2024-04-17)
PROC: 5A1935Z Respiratory Ventilation, Less than 24 Consecutive Hours (ICD-10-PCS; 2024-04-17)
DX: J96.00 Acute respiratory failure, unspecified whether with hypoxia or hypercapnia (principal); E03.9 Hypothyroidism, unspecified; M48.07 Spinal stenosis, lumbosacral region; E78.5 Hyperlipidemia, unspecified; R68.0 Hypothermia, not associated with low environmental temperature; D64.9 Anemia, unspecified; R00.1 Bradycardia, unspecified; E11.9 Type 2 diabetes mellitus without complications; Z91.148 Patient's other noncompliance with medication regimen for other reason
CPT/HCPCS: 36415; 36556; 36600; 70450; 71045; 72100; 80048; 80307; 81001; 82805; 82962; 84443; 84484; 85025; 85610; 86850; 86900; 86901; 87040; 92950; 92960; 93005; 94002; 96361; 96374; 99291; G0378; J0171; J0330; J2543